=== PATIENT | female | born 1990 | race Caucasian/White ===

== ENCOUNTER 2017-01-17 13:14 | Outpatient (CLI) | payer MEDICAID ==
[~2017-01-17] VITALS: Ht 160 cm; Wt 77.2 kg
[~2017-01-17 13:14] MED LIST: IBUP-1222 PO; OXYC-302 PO
[2017-01-17 14:02] VITALS: BP 115/60
[2017-01-17 14:10] LABS: AMNI OBC PASS; AMNISURE NEGATIVE (NEGATIVE)
== END 2017-01-17 14:35 | disposition home or self-care (01) ==
LOC: LDOP 13:14
PROVIDERS: ATTEND Obstetrics & Gynecology
DX: O42.912 Preterm premature rupture of membranes, unspecified as to length of time between rupture and onset of labor, second trimester (principal); O44.42 Low lying placenta NOS or without hemorrhage, second trimester; Z3A.23 23 weeks gestation of pregnancy
CPT/HCPCS: 59025; 84112; 87210; 87808; 99201; G0463

== ENCOUNTER 2017-03-02 16:04 | Outpatient (CLI) | payer MEDICAID ==
[2017-03-02 16:31] VITALS: BP 121/68
== END 2017-03-02 17:31 | disposition home or self-care (01) ==
LOC: LDOP 16:04
PROVIDERS: ATTEND Obstetrics & Gynecology
DX: O44.53 Low lying placenta with hemorrhage, third trimester (principal); Z3A.31 31 weeks gestation of pregnancy
CPT/HCPCS: 59025; 99211; G0463

== ENCOUNTER 2017-03-27 21:57 | Outpatient (CLI) | payer MEDICAID ==
[~2017-03-27] VITALS: Ht 160 cm; Wt 82.3 kg
[2017-03-27 22:10] VITALS: BP 127/73
[2017-03-28] MEDS ORDERED: MAALOX/HYOSCYAMINE/LIDOCAINE 45 ML BOTTLE PO PRN (00:30)
[2017-03-28] MEDS ORDERED: ONDANSETRON ODT 4 MG PO PRN (00:30)
== END 2017-03-28 01:55 | disposition home or self-care (01) ==
LOC: LDOP 21:57
PROVIDERS: ATTEND Obstetrics & Gynecology
DX: O26.893 Other specified pregnancy related conditions, third trimester (principal); O44.43 Low lying placenta NOS or without hemorrhage, third trimester; M54.5 Low back pain; R10.9 Unspecified abdominal pain; R11.0 Nausea; Z3A.33 33 weeks gestation of pregnancy
CPT/HCPCS: 36415; 59025; 76770; 81001; 85025; 87086; 99211; G0463

== ENCOUNTER 2017-06-14 22:30 | Emergency (ER) | payer MEDICAID ==
[~2017-06-14] VITALS: Ht 160 cm; Wt 74.3 kg
[~2017-06-14 22:30] MED LIST changes: +HYDR-3240 PO; +PREN1TAB60 PO
[2017-06-14 23:12] LABS: HEMATOCRIT 38.6 % (34.6-47.8); HEMOGLOBIN 12.8 g/dL (11.7-16.4); WHITE BLOOD COUNT 9.5 x10^3/uL (3.4-10)
[2017-06-14 23:20] LABS: PATH.CAST-FLAG NOT PRESENT; SPERM-FLAG NOT PRESENT; SRC-FLAG NOT PRESENT; XTAL-FLAG NOT PRESENT; YLC-FLAG NOT PRESENT
[2017-06-14 23:24] LABS: BLOOD UREA NITROGEN 15 mg/dL (7-18)
[2017-06-15 00:41] VITALS: BP 115/70
== END 2017-06-15 00:44 | disposition home or self-care (01) ==
LOC: ED 23:33
DX: N12 Tubulo-interstitial nephritis, not specified as acute or chronic (principal); R31.9 Hematuria, unspecified
CPT/HCPCS: 36415; 76830; 80048; 81001; 82040; 85025; 87081; 87086; 87880; 99285

== ENCOUNTER → 2018-03-03 | Outpatient (CLI) | payer MEDICAID ==
[~2018-03-03] MED LIST changes: +GUAI-103 PO; +IBUP-1223 PO; +LUBI24CA7 PO; +ONDA4TAB10 PO; +SENN8.8S5 PO; +dayquil PO
[2018-03-03 16:20] LABS: BASOPHILS # (AUTO) 0.04 x10^3/uL (0-0.1); BASOPHILS % (AUTO) 0 % (0-1); EOSINOPHILS # (AUTO) 0.11 x10^3/uL (0-0.4); EOSINOPHILS % (AUTO) 1 % (1-7); LYMPHOCYTES # (AUTO) 2.57 x10^3/uL (1-3.4); LYMPHOCYTES % (AUTO) 29 % (22-44); MD NO; MEAN CORPUSCULAR HEMOGLOBIN 30.2 pg (27.0-34.8); MEAN CORPUSCULAR HGB CONC 33.8 g/dL (32.4-35.8); MEAN CORPUSCULAR VOLUME 89.4 fL (80-100); MEAN PLATELET VOLUME 9.2 fL (7.4-10.4); MONOCYTES # (AUTO) 0.61 x10^3/uL (0.2-0.8); MONOCYTES % (AUTO) 7 % (2-9); NEUTROPHILS # (AUTO) 5.47 x10^3/uL (1.8-6.8); NEUTROPHILS % (AUTO) 62 % (42-75); PLATELET COUNT 269 x10^3/uL (130-400); RED BLOOD COUNT 4.48 x10^6/uL (3.82-5.3); RED CELL DISTRIBUTION WIDTH 12.9 % (9.6-15.2)
[2018-03-03 16:23] LABS: MICROSCOPIC NOT IND
[2018-03-03 16:33] LABS: CULTURE INDICATED? NO
== END | disposition home or self-care (01) ==
LOC: STAR 15:09
PROVIDERS: ATTEND Obstetrics & Gynecology
DX: Z01.818 Encounter for other preprocedural examination (principal); N94.6 Dysmenorrhea, unspecified; N80.9 Endometriosis, unspecified
CPT/HCPCS: 36415; 81003; 84703; 85025

== ENCOUNTER 2018-03-08 05:12 | Day surgery (SDC) | payer MEDICAID ==
[~2018-03-08] VITALS: Ht 160 cm; Wt 75.0 kg
[~2018-03-08 05:12] MED LIST changes: -GUAI-103 PO; -IBUP-1223 PO; -ONDA4TAB10 PO; -SENN8.8S5 PO
[2018-03-08] MEDS ORDERED: LACTATED RINGERS 1,000 ML IV SCH (06:08)
[2018-03-08] MEDS ORDERED: GUAI-103 PO (06:09)
[2018-03-08] MEDS ORDERED: BUPIVACAINE/PF-EPI 0.25% 1:200K ONE (06:22)
[2018-03-08] MEDS ORDERED: SILVER NITRATE STICK TP ONE (06:23)
[2018-03-08 06:31] LABS: HCG UR SG 1.024 (1.003-1.030)
[2018-03-08] MEDS ORDERED: MIDAZOLAM 1 MG/ML, 2ML ONE (06:41)
[2018-03-08] MEDS ORDERED: FENTANYL PF 250 MCG/5ML ONE (06:42)
[2018-03-08] MEDS ORDERED: ONDANSETRON ODT 8 MG PO PRN (07:30)
[2018-03-08] MEDS ORDERED: MIDAZOLAM 1 MG/ML, 2ML IV PRN (07:30)
[2018-03-08] MEDS ORDERED: PROMETHAZINE 12.5 MG SUPP PR PRN (07:30)
[2018-03-08] MEDS ORDERED: PROMETHAZINE 25 MG/ML, 1ML IV PRN (07:30)
[2018-03-08] MEDS ORDERED: EPHEDRINE 50 MG/ML, 1ML IM PRN (07:30)
[2018-03-08] MEDS ORDERED: EPHEDRINE 50 MG/ML, 1ML IVPush PRN (07:30)
[2018-03-08] MEDS ORDERED: DIPHENHYDRAMINE 50 MG/ML, 1ML IVPush PRN ×2 (07:30)
[2018-03-08] MEDS ORDERED: MEPERIDINE/PF 25MG/0.5ML IVPush PRN (07:30)
[2018-03-08] MEDS ORDERED: MORPHINE SULFATE 4 MG/ML, 1ML IVPush PRN (07:30)
[2018-03-08] MEDS ORDERED: SUCCINYLCHOLINE 20 MG/ML, 10ML ONE (08:08)
[2018-03-08] MEDS ORDERED: PROPOFOL 10 MG/ML, 20ML ONE ×2 (08:08)
[2018-03-08] MEDS ORDERED: CEFAZOLIN 1,000 MG ONE (08:08)
[2018-03-08] MEDS ORDERED: DEXAMETHASONE 4 MG/ML, 1ML ONE (08:09)
[2018-03-08] MEDS ORDERED: ONDANSETRON 2MG/ML, 2ML ONE (08:09)
[2018-03-08] MEDS ORDERED: FENTANYL PF 100 MCG/2ML ONE (09:21)
[2018-03-08] MEDS ORDERED: PROMETHAZINE 25 MG/ML, 1ML ONE (09:21)
[2018-03-08] MEDS ORDERED: MEPERIDINE/PF 50 MG/ML ONE (09:21)
[2018-03-08] MEDS: FENTANYL PF 100 MCG/2ML IV PRN ×2 (09:36→09:49)
[2018-03-08] MEDS ORDERED: OXYcodone 5 MG/5 ML ORAL.SOL UDC ONE (09:39)
[2018-03-08] MEDS: OXYcodone 5 MG/5 ML ORAL.SOL UDC PO PRN ×2 (09:48→11:31)
[2018-03-08] MEDS ORDERED: OXYC-302 PO (10:48)
[2018-03-08] MEDS ORDERED: IBUP-1223 PO (10:52)
[2018-03-08] MEDS ORDERED: ONDA4TAB10 PO (10:53)
[2018-03-08] MEDS ORDERED: SENN8.8S5 PO (10:53)
== END 2018-03-08 11:40 | disposition home or self-care (01) ==
LOC: OUT 05:12
PROVIDERS: ATTEND Obstetrics & Gynecology
DX: N83.8 Other noninflammatory disorders of ovary, fallopian tube and broad ligament (principal); N88.9 Noninflammatory disorder of cervix uteri, unspecified; N83.201 Unspecified ovarian cyst, right side; N80.1 Endometriosis of ovary; N94.6 Dysmenorrhea, unspecified; N93.9 Abnormal uterine and vaginal bleeding, unspecified; R30.0 Dysuria; Z79.1 Long term (current) use of non-steroidal anti-inflammatories (NSAID); Z79.899 Other long term (current) drug therapy; Z82.49 Family history of ischemic heart disease and other diseases of the circulatory system
CPT/HCPCS: 58558; 58662; 81025; 88112; 88304; 88305; J0330; J0690; J1100; J2175; J2250; J2405; J2550; J2704; J3010; J7120

== ENCOUNTER 2018-03-22 22:25 | Emergency (ER) | payer MEDICAID ==
[~2018-03-22] VITALS: Ht 160 cm; Wt 77.0 kg
[~2018-03-22 22:25] MED LIST changes: +GUAI-103 PO; +IBUP-1223 PO; +ONDA4TAB10 PO; +SENN8.8S5 PO
[2018-03-22 22:29] VITALS: BP 116/79
== END 2018-03-23 00:19 | disposition left against medical advice (07) ==
LOC: ED 23:59
DX: R11.0 Nausea (principal); Z53.21 Procedure and treatment not carried out due to patient leaving prior to being seen by health care provider

== ENCOUNTER 2018-03-23 18:45 | Emergency (ER) | payer MEDICAID ==
[~2018-03-23] VITALS: Ht 160 cm; Wt 76.0 kg
[2018-03-23 18:49] VITALS: BP 133/92
[2018-03-23 19:55] LABS: BASOPHILS # (AUTO) 0.04 x10^3/uL (0-0.1); BASOPHILS % (AUTO) 1 % (0-1); EOSINOPHILS # (AUTO) 0.26 x10^3/uL (0-0.4); EOSINOPHILS % (AUTO) 3 % (1-7); LYMPHOCYTES # (AUTO) 2.73 x10^3/uL (1-3.4); LYMPHOCYTES % (AUTO) 32 % (22-44); MD NO; MEAN CORPUSCULAR HEMOGLOBIN 29.9 pg (27.0-34.8); MEAN CORPUSCULAR HGB CONC 33.6 g/dL (32.4-35.8); MEAN PLATELET VOLUME 8.6 fL (7.4-10.4); MONOCYTES # (AUTO) 0.55 x10^3/uL (0.2-0.8); MONOCYTES % (AUTO) 7 % (2-9); NEUTROPHILS # (AUTO) 4.87 x10^3/uL (1.8-6.8); NEUTROPHILS % (AUTO) 58 % (42-75); PLATELET COUNT 265 x10^3/uL (130-400); RED BLOOD COUNT 4.53 x10^6/uL (3.82-5.3); RED CELL DISTRIBUTION WIDTH 12.6 % (9.6-15.2)
[2018-03-23 19:58] LABS: ANION GAP 7 mmol/L (5-15); CALCIUM 8.8 mg/dL (8.5-10.1); CHLORIDE 106 mmol/L (98-107)
[2018-03-23] MEDS ORDERED: SODIUM CHLORIDE FLUSH 10ML SYR IVF ONE (20:00)
[2018-03-23] MEDS ORDERED: SODIUM CHLORIDE 0.9% 1,000ML IVBOLUS ONE (20:00)
[2018-03-23] MEDS ORDERED: METOCLOPRAMIDE 5 MG/ML, 2ML IVPush ONE (20:00)
[2018-03-23] MEDS ORDERED: KETOROLAC 30 MG/1 ML IVPush ONE (20:00)
[2018-03-23] MEDS ORDERED: DIPHENHYDRAMINE 50 MG/ML, 1ML IVPush ONE (20:00)
[2018-03-23 20:04] LABS: ALANINE AMINOTRANSFERASE 30 U/L (12-78); ALKALINE PHOSPHATASE 76 U/L (45-117); BILIRUBIN,TOTAL 0.5 mg/dL (0.2-1.0)
[2018-03-23 20:08] LABS: MICROSCOPIC AUTO
[2018-03-23 20:13] LABS: CULTURE INDICATED? YES
[2018-03-23] MEDS ORDERED: ACETAMINOPHEN 325 MG TABLET PO ONE (20:30)
[2018-03-23] MEDS ORDERED: KETOROLAC 30 MG/1 ML IM ONE (20:30)
[2018-03-23] MEDS ORDERED: METOCLOPRAMIDE 10MG TABLET PO ONE (20:30)
[2018-03-23] MEDS ORDERED: DIPHENHYDRAMINE 50 MG CAPSULE PO ONE (20:30)
[2018-03-23] MEDS ORDERED: DIPHENHYDRAMINE 50 MG CAPSULE ONE (20:59)
[2018-03-23] MEDS ORDERED: KETOROLAC 30 MG/1 ML ONE (20:59)
[2018-03-23] MEDS ORDERED: ACETAMINOPHEN 325 MG TABLET ONE (21:00)
[2018-03-23] MEDS ORDERED: METOCLOPRAMIDE 10MG TABLET ONE (21:00)
== END 2018-03-23 21:26 | disposition home or self-care (01) ==
LOC: ED 21:20
DX: L03.316 Cellulitis of umbilicus (principal); G43.909 Migraine, unspecified, not intractable, without status migrainosus
CPT/HCPCS: 36415; 80053; 81001; 84703; 85025; 87086; 93005; 96372; 99285; J1885

== ENCOUNTER 2018-04-22 20:09 | Emergency (ER) | payer MEDICAID ==
[~2018-04-22] VITALS: Ht 160 cm; Wt 74.0 kg
[2018-04-22] MEDS ORDERED: KETOROLAC 30 MG/1 ML ONE (20:58)
[2018-04-22] MEDS ORDERED: KETOROLAC 30 MG/1 ML IM ONE (21:00)
[2018-04-22] MEDS ORDERED: METHOCARBAMOL 750 MG TABLET PO ONE (21:00)
[2018-04-22] MEDS ORDERED: METHOCARBAMOL 500 MG TABLET PO ONE (21:30)
[2018-04-22 22:11] VITALS: BP 96/62
== END 2018-04-22 22:14 | disposition home or self-care (01) ==
LOC: ED 21:55
DX: G44.221 Chronic tension-type headache, intractable (principal)
CPT/HCPCS: 96372; 99283; J1885

== ENCOUNTER 2019-04-08 16:25 | Emergency (ER) | payer MEDICAID ==
[~2019-04-08] VITALS: Ht 160 cm; Wt 67.0 kg
[~2019-04-08 16:25] MED LIST changes: +TOPI100T8 PO
--- NOTE | 2019-04-08 17:12 | NUR ---
PT AMBULATORY TO ROOM 38 W/ C/O CRAMPING TO PELVIC REGION. PT STATES SHE WAS SEEN HERE WED AND HAD US DONE. STATES THURSDAY SHE TOOK TEST AND IT WAS IMMEDIATELY POSITIVE. PT STATES THAT SINCE SHE HAD US WED W/ NO SEEN PT IS AFRAID OF ECTOPIC. PT RESTING ON GURNEY. NADN. WARM BLANKET PROVIDED.
--- NOTE | 2019-04-08 17:24 | NUR ---
PER ERP DR. DELVALLE NO NEED FOR LAB AT THIS TIME.
[2019-04-08 17:40] LABS: CULTURE INDICATED? YES; MICROSCOPIC INDICATED
--- NOTE | 2019-04-08 18:00 | NUR ---
PT RESTING ON FRANKLIN. TOMMY. VSS. FAMILY REMAINS AT BEDSIDE.
[2019-04-08 18:40] VITALS: BP 113/69
--- NOTE | 2019-04-08 18:40 | NUR ---
PT RESTING ON GURNEY. NADN. CORADO.
--- NOTE | 2019-04-08 18:57 | NUR ---
REPORT GIVEN TO NICOLLE MONTGOMERY RN.
[2019-05-23] MEDS ORDERED: OXYC-307 PO (16:40)
== END 2019-04-08 19:14 | disposition home or self-care (01) ==
LOC: ED 17:05
DX: O23.11 Infections of bladder in pregnancy, first trimester (principal); G43.909 Migraine, unspecified, not intractable, without status migrainosus; Z3A.00 Weeks of gestation of pregnancy not specified
CPT/HCPCS: 36415; 76801; 81001; 84702; 87077; 87086; 87186; 99284

== ENCOUNTER 2019-04-10 16:41 | Emergency (ER) | payer MEDICAID ==
[~2019-04-10] VITALS: Ht 160 cm; Wt 67.0 kg
--- NOTE | 2019-04-10 16:55 | NUR ---
PT A&OX4, RESP EVEN & UNLABORED, SPEECH CLEAR, SKIN WNL. SPOUSE IN ROOM. POSTIVE HOME PG TEST ON . WAS SEEN AT [facility] ON THURSDAY. WAS TOLD TO RETURN FOR REPEAT HCG LEVEL. PAIN ACROSS LOWER ABD, WORSE RLQ; STARTED 1 WK AGO. TYLENOL YESTERDAY. 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 LMP: 03/08/19. AB3. Addendum: 04/10/19 at 1659 by JODI RECENTLY DX'D W/ UTI; HASN'T STARTED ANTIBIOTIC YET.
[2019-04-10] MEDS ORDERED: SUMA20SP2 NAS (17:05)
[2019-04-10] MEDS ORDERED: IMITREX (17:05)
--- NOTE | 2019-04-10 18:02 | NUR ---
PT REPORT TO BREAK RN: BHAVNA. PT CARE TRANSFERRED. PT AWAITING U/S.
--- NOTE | 2019-04-10 19:09 | NUR ---
PT LYING ON BED, REPORTS INCREASED PAIN R/T U/S, IMPROVING NOW.
[2019-04-10 20:15] VITALS: BP 106/70
[2019-05-23] MEDS ORDERED: OXYC-307 PO (16:40)
== END 2019-04-10 20:17 | disposition home or self-care (01) ==
LOC: ED 17:12
DX: O26.891 Other specified pregnancy related conditions, first trimester (principal); R10.31 Right lower quadrant pain; G43.909 Migraine, unspecified, not intractable, without status migrainosus; Z3A.01 Less than 8 weeks gestation of pregnancy
CPT/HCPCS: 36415; 76856; 84702; 99284

== ENCOUNTER 2019-04-22 15:14 | Emergency (ER) | payer MEDICAID ==
[~2019-04-22] VITALS: Ht 160 cm; Wt 67.7 kg
[2019-04-22 15:31] VITALS: BP 115/75
== END 2019-04-22 19:12 | disposition home or self-care (01) ==
LOC: ED 19:02
DX: O99.611 Diseases of the digestive system complicating pregnancy, first trimester (principal); K29.00 Acute gastritis without bleeding; R82.71 Bacteriuria; R42 Dizziness and giddiness; R11.0 Nausea; Z3A.01 Less than 8 weeks gestation of pregnancy
CPT/HCPCS: 36415; 76830; 80053; 81001; 84702; 85025; 87077; 87086; 87186; 99284

== ENCOUNTER → 2019-11-20 | Outpatient (CLI) | payer MEDICAID ==
[~2019-11-20] MED LIST changes: +IMITREX; +OXYC-307 PO; +SUMA20SP2 NAS
== END | disposition home or self-care (01) ==
LOC: RAD 11:35
PROVIDERS: ATTEND Nurse Practitioner
DX: R68.84 Jaw pain (principal); J20.9 Acute bronchitis, unspecified
CPT/HCPCS: 70100

== ENCOUNTER 2020-05-07 13:01 | Inpatient (IN) | payer MEDICAID ==
[~2020-05-07] VITALS: Ht 160 cm; Wt 72.0 kg
[2020-05-07 13:55] LABS: MEAN CORPUSCULAR HEMOGLOBIN 31.4 pg (27.0-34.8); MEAN CORPUSCULAR HGB CONC 33.5 g/dL (32.4-35.8); MEAN CORPUSCULAR VOLUME 93.8 fL (80-100); MEAN PLATELET VOLUME 8.6 fL (7.4-10.4); PLATELET COUNT 178 x10^3/uL (130-400); RED BLOOD COUNT 3.82 x10^6/uL (3.82-5.3); RED CELL DISTRIBUTION WIDTH 12.4 % (9.6-15.2)
[2020-05-07 14:02] LABS: ALBUMIN 3.6 g/dL (3.4-5.0); ANION GAP 6 mmol/L (5-15); CHLORIDE 107 mmol/L (98-107)
[2020-05-07 14:08] LABS: ALANINE AMINOTRANSFERASE 22 U/L (12-78); ALKALINE PHOSPHATASE 79 U/L (45-117); BILIRUBIN,TOTAL 0.7 mg/dL (0.2-1.0); CREATININE 0.87 mg/dL (0.55-1.02); TOTAL PROTEIN 7.6 g/dL (6.4-8.2)
[2020-05-07 14:19] LABS: BAND#(MANUAL) 1.32 x10^3/uL; BANDS%(MANUAL) 11 % (0-7); EOS#(MANUAL) 0.12 x10^3/uL (0.0-0.4); EOS% (MANUAL) 1 % (1-7); LYMPHS% (MANUAL) 5 % (22-44); MD YES; MONOS#(MANUAL) 0.84 x10^3/uL (0.3-2.7); MONOS% (MANUAL) 7 % (2-9); SEG#(MANUAL) 9.12 x10^3/uL (1.8-6.8); SEGS% (MANUAL) 76 % (42-75)
[2020-05-07 14:20] LABS: <PLATELET ESTIMATE> ADEQUATE; <PLT MORPHOLOGY> NORMAL PLT MORPH; <RBC MORPHOLOGY> NORMAL
--- NOTE | 2020-05-07 14:42 | NUR ---
INVASIVE CARDIOLOGIST: PT AMBULATORY WITH STEADY GAIT TO ROOM AT THIS TIME. TOMMY
--- NOTE | 2020-05-07 15:56 | NUR ---
PT GOING TO CT AT THIS TIME. BLOOD CULTURES HAVE BEEN DRAWN. IV STARTED.
[2020-05-07] MEDS ORDERED: SODIUM CHLORIDE 0.9% 1,000ML IVBOLUS ONE (16:00)
[2020-05-07] MEDS ORDERED: SODIUM CHLORIDE FLUSH 10ML SYR IVF ONE (16:00)
[2020-05-07 16:10] LABS: MICROSCOPIC INDICATED
[2020-05-07 16:20] LABS: CALCIUM 9.1 mg/dL (8.5-10.1)
[2020-05-07] MEDS ORDERED: CEFTRIAXONE PMX 1GM/50ML 50 ML IV ONE (17:00)
[2020-05-07] MEDS ORDERED: KETOROLAC 30 MG/1 ML ONE (17:18)
[2020-05-07] MEDS ORDERED: METOCLOPRAMIDE 5 MG/ML, 2ML ONE (17:18)
[2020-05-07] MEDS ORDERED: CEFTRIAXONE PMX 1GM/50ML 50 ML ONE (17:18)
[2020-05-07] MEDS ORDERED: ELAG200T PO (17:26)
[2020-05-07] MEDS ORDERED: NORE0.3513 PO (17:26)
[2020-05-07] MEDS ORDERED: IBUP-1223 PO (17:26)
[2020-05-07] MEDS ORDERED: METOCLOPRAMIDE 5 MG/ML, 2ML IVPush ONE (17:30)
[2020-05-07] MEDS ORDERED: KETOROLAC 30 MG/1 ML IVPush ONE (17:30)
--- NOTE | 2020-05-07 17:35 | NUR ---
PT LMEDICATED PER EMAR. MED REC DONE. PT AWARE SHE IS GOING TO BE ADMITTED. PT GOING TO CT AT THIS TIME. PT VSS, SEE CHARTED.
[2020-05-07] MEDS ORDERED: OMNIPAQUE 350 MG/ML, 100ML BOTTLE ONE (17:50)
[2020-05-07] MEDS: SODIUM CHLORIDE 0.9% 1,000 ML IV SCH (18:50)
--- NOTE | 2020-05-07 18:55 | NUR ---
PT UP FOR BATHROOM STEADILY. NO STATED COMPLAINTS AT THIS TIME. REPORT TO ELVER LORENZO.
[2020-05-07 19:55] VITALS: BP 114/77
[2020-05-07] MEDS: HEPARIN 5,000 UNITS/ML, 1ML SQ SCH ×2 (20:00→20:44)
[2020-05-07] MEDS: HYDROcodone/APAP 5/325 TABLET PO PRN (20:39)
[2020-05-07] MEDS: KETOROLAC 30 MG/1 ML IV PRN (23:47)
[2020-05-08] MEDS: HYDROcodone/APAP 5/325 TABLET PO PRN ×5 (00:45→19:09)
[2020-05-08 00:52] VITALS: BP 100/64
[2020-05-08] MEDS: SODIUM CHLORIDE 0.9% 1,000 ML IV SCH ×4 (02:21→22:02)
[2020-05-08] MEDS: HEPARIN 5,000 UNITS/ML, 1ML SQ SCH ×3 (04:00→20:00)
[2020-05-08 06:35] VITALS: BP 95/61
[2020-05-08 06:40] LABS: BASOPHILS # (AUTO) 0.01 x10^3/uL (0-0.1); BASOPHILS % (AUTO) 0 % (0-1); EOSINOPHILS # (AUTO) 0.07 x10^3/uL (0-0.4); EOSINOPHILS % (AUTO) 1 % (1-7); LYMPHOCYTES # (AUTO) 0.73 x10^3/uL (1-3.4); LYMPHOCYTES % (AUTO) 10 % (22-44); MD NO; MEAN CORPUSCULAR HEMOGLOBIN 31.8 pg (27.0-34.8); MEAN CORPUSCULAR VOLUME 93.5 fL (80-100); MEAN PLATELET VOLUME 8.1 fL (7.4-10.4); MONOCYTES # (AUTO) 0.83 x10^3/uL (0.2-0.8); MONOCYTES % (AUTO) 11 % (2-9); NEUTROPHILS # (AUTO) 6.06 x10^3/uL (1.8-6.8); NEUTROPHILS % (AUTO) 79 % (42-75); PLATELET COUNT 143 x10^3/uL (130-400); RED BLOOD COUNT 3.13 x10^6/uL (3.82-5.3); RED CELL DISTRIBUTION WIDTH 12.4 % (9.6-15.2)
[2020-05-08 06:45] LABS: CHLORIDE 109 mmol/L (98-107)
[2020-05-08 07:07] LABS: ALANINE AMINOTRANSFERASE 14 U/L (12-78); ALBUMIN 2.7 g/dL (3.4-5.0); ALKALINE PHOSPHATASE 66 U/L (45-117); ANION GAP 8 mmol/L (5-15); BILIRUBIN,TOTAL 0.7 mg/dL (0.2-1.0); TOTAL PROTEIN 6.2 g/dL (6.4-8.2)
[2020-05-08] MEDS: ONDANSETRON 2MG/ML, 2ML IVPush PRN ×2 (07:52→18:25)
[2020-05-08] MEDS: KETOROLAC 30 MG/1 ML IV PRN ×3 (07:52→22:36)
[2020-05-08] MEDS ORDERED: DIPHENHYDRAMINE 50 MG/ML, 1ML IVPush ONE (10:30)
[2020-05-08] MEDS ORDERED: morphine SULFATE 10 MG/ML, 1ML IVPush PRN (10:30)
[2020-05-08] MEDS ORDERED: MAGNESIUM HYDROXIDE 8%, 30ML UDC ONE (10:45)
[2020-05-08] MEDS ORDERED: BISACODYL 10 MG SUPP PR PRN (11:00)
[2020-05-08] MEDS ORDERED: MAGNESIUM HYDROXIDE 8%, 30ML UDC PO PRN (11:00)
[2020-05-08 14:00] VITALS: BP 94/66
[2020-05-08] MEDS: POLYETHYLENE GLYCOL 17 GM PACKET NG PRN (14:40)
[2020-05-08] MEDS: CEFTRIAXONE PMX 1GM/50ML 50 ML IV SCH (16:45)
[2020-05-08 19:06] VITALS: BP 113/74
[2020-05-08] MEDS ORDERED: DIPHENHYDRAMINE 50 MG CAPSULE PO PRN (23:00)
[2020-05-09] MEDS: HYDROcodone/APAP 5/325 TABLET PO PRN ×4 (00:11→19:29)
[2020-05-09 02:07] VITALS: BP 105/70
[2020-05-09] MEDS: HEPARIN 5,000 UNITS/ML, 1ML SQ SCH ×3 (04:00→19:38)
[2020-05-09] MEDS: SODIUM CHLORIDE 0.9% 1,000 ML IV SCH ×2 (04:12→10:20)
[2020-05-09 05:54] LABS: BASOPHILS # (AUTO) 0.01 x10^3/uL (0-0.1); BASOPHILS % (AUTO) 0 % (0-1); EOSINOPHILS % (AUTO) 1 % (1-7); LYMPHOCYTES # (AUTO) 1.03 x10^3/uL (1-3.4); LYMPHOCYTES % (AUTO) 15 % (22-44); MD NO; MEAN CORPUSCULAR HEMOGLOBIN 31.2 pg (27.0-34.8); MEAN CORPUSCULAR HGB CONC 32.8 g/dL (32.4-35.8); MEAN CORPUSCULAR VOLUME 95.2 fL (80-100); MEAN PLATELET VOLUME 7.9 fL (7.4-10.4); MONOCYTES % (AUTO) 13 % (2-9); NEUTROPHILS # (AUTO) 4.89 x10^3/uL (1.8-6.8); NEUTROPHILS % (AUTO) 71 % (42-75); PLATELET COUNT 161 x10^3/uL (130-400); RED CELL DISTRIBUTION WIDTH 12.5 % (9.6-15.2)
[2020-05-09] MEDS: ONDANSETRON 2MG/ML, 2ML IVPush PRN ×2 (05:57→14:43)
[2020-05-09 05:59] LABS: ANION GAP 5 mmol/L (5-15); CHLORIDE 111 mmol/L (98-107)
[2020-05-09 07:53] VITALS: BP 110/73
[2020-05-09] MEDS: KETOROLAC 30 MG/1 ML IV PRN ×3 (08:28→21:31)
[2020-05-09] MEDS: ACETAMINOPHEN 325 MG TABLET PO PRN (08:28)
[2020-05-09 13:59] VITALS: BP 109/75
[2020-05-09] MEDS: CEFTRIAXONE PMX 1GM/50ML 50 ML IV SCH (17:00)
[2020-05-09 19:25] VITALS: BP 110/71
[2020-05-09] MEDS: POLYETHYLENE GLYCOL 17 GM PACKET NG PRN (19:36)
[2020-05-10 01:36] VITALS: BP 108/70
[2020-05-10] MEDS: HYDROcodone/APAP 5/325 TABLET PO PRN ×5 (01:39→23:22)
[2020-05-10] MEDS: HEPARIN 5,000 UNITS/ML, 1ML SQ SCH ×3 (02:50→19:21)
[2020-05-10] MEDS: KETOROLAC 30 MG/1 ML IV PRN ×4 (05:03→23:22)
[2020-05-10 07:36] VITALS: BP 114/64
[2020-05-10] MEDS ORDERED: CEFTRIAXONE PMX 2GM/50ML 50 ML IV SCH (12:30)
[2020-05-10 13:53] VITALS: BP 112/66
[2020-05-10] MEDS: ONDANSETRON 2MG/ML, 2ML IVPush PRN (14:35)
[2020-05-10 19:03] VITALS: BP 109/72
[2020-05-11 02:21] VITALS: BP 100/62
[2020-05-11] MEDS: HEPARIN 5,000 UNITS/ML, 1ML SQ SCH (03:17)
[2020-05-11 07:18] VITALS: BP 106/72
[2020-05-11] MEDS: KETOROLAC 30 MG/1 ML IV PRN (07:44)
[2020-05-11] MEDS: ACETAMINOPHEN 325 MG TABLET PO PRN (07:44)
[2020-05-11] MEDS: HYDROcodone/APAP 5/325 TABLET PO PRN (08:42)
[2020-05-11] MEDS ORDERED: SULF1TAB24 PO (09:43)
[2020-05-11] MEDS ORDERED: HYDR-3237 PO (09:43)
== END 2020-05-11 11:26 | disposition home or self-care (01) | DRG 872 ==
LOC: ED 17:48 → EDIP 17:55 → ED 18:15 → 4NE 19:39 → 4NW 05-10 09:46
PROVIDERS: ADMIT Internal Medicine; ATTEND Family Medicine
DX: A41.9 Sepsis, unspecified organism (principal); N10 Acute pyelonephritis; Z16.11 Resistance to penicillins; B96.20 Unspecified Escherichia coli [E. coli] as the cause of diseases classified elsewhere; G43.009 Migraine without aura, not intractable, without status migrainosus; F12.90 Cannabis use, unspecified, uncomplicated; N89.8 Other specified noninflammatory disorders of vagina; Z82.49 Family history of ischemic heart disease and other diseases of the circulatory system
CPT/HCPCS: 36415; 74021; 74177; 80048; 80053; 81001; 83605; 83735; 84100; 84145; 84443; 84703; 85025; 87040; 87077; 87086; 87186; 87491; 87591; 96374; 99291; G0378; J0696; J1644; J1885; J2405; Q9967; J1200; J2765; J7030

== ENCOUNTER 2020-07-29 00:11 | Emergency (ER) | payer MEDICAID ==
[~2020-07-29] VITALS: Ht 160 cm; Wt 64.6 kg
[~2020-07-29 00:11] MED LIST changes: +ELAG200T PO; +HYDR-3237 PO; +NORE0.3513 PO; +SULF1TAB24 PO
--- NOTE | 2020-07-29 00:20 | NUR ---
PT RESTING IN GOWN IN [facility] WITH PARTNER AT BS. PT EDUCATED ON ER PROCESS AND POC AND VERBALIZES UNDERSTANDING. YESENIA HOLLIS, AT BS FOR PT HISTORY AND ASSESSMENT. PT URINE COLLECTED AND TUBED TO LAB AT THIS TIME. PT DENIES ANY OTHER NEEDS AT THIS TIME.
[2020-07-29] MEDS ORDERED: FLUCONAZOLE 100 MG TABLET ONE (00:42)
--- NOTE | 2020-07-29 00:47 | NUR ---
PT MEDICATED PER MAR AT THIS TIME.
[2020-07-29 00:50] LABS: MICROSCOPIC AUTO
[2020-07-29 01:00] LABS: BASOPHILS % (AUTO) 0 % (0-1); EOSINOPHILS % (AUTO) 1 % (1-7); LYMPHOCYTES % (AUTO) 11 % (22-44); MEAN CORPUSCULAR HGB CONC 34.5 g/dL (32.4-35.8); MEAN PLATELET VOLUME 7.9 fL (7.4-10.4); MONOCYTES % (AUTO) 8 % (2-9); NEUTROPHILS % (AUTO) 80 % (42-75); PLATELET COUNT 192 x10^3/uL (130-400); RED BLOOD COUNT 3.95 x10^6/uL (3.82-5.3); RED CELL DISTRIBUTION WIDTH 12.2 % (9.6-15.2)
[2020-07-29] MEDS ORDERED: FLUCONAZOLE 100 MG TABLET PO ONE (01:00)
[2020-07-29 01:02] LABS: MD NO
[2020-07-29 01:09] LABS: ALANINE AMINOTRANSFERASE 14 U/L (12-78); ALBUMIN 3.9 g/dL (3.4-5.0); ANION GAP 4 mmol/L (5-15); CALCIUM 8.4 mg/dL (8.5-10.1); CHLORIDE 110 mmol/L (98-107)
[2020-07-29 01:13] LABS: ALKALINE PHOSPHATASE 50 U/L (45-117); BILIRUBIN,TOTAL 0.2 mg/dL (0.2-1.0); TOTAL PROTEIN 7.2 g/dL (6.4-8.2)
[2020-07-29] MEDS ORDERED: CEFDINIR 300 MG CAPSULE ONE (01:49)
--- NOTE | 2020-07-29 01:57 | NUR ---
pt medicated per nov. pt d/c with d/c summary and scripts and denies any other needs pertaining to this visit. pt has call light within reach and denies any other needs at this time.
[2020-07-29 01:58] VITALS: BP 114/66
[2020-07-29] MEDS ORDERED: CEFDINIR 300 MG CAPSULE PO ONE (02:00)
== END 2020-07-29 02:13 | disposition home or self-care (01) ==
LOC: ED 01:14
DX: N30.00 Acute cystitis without hematuria (principal); B37.3 Candidiasis of vulva and vagina; G43.909 Migraine, unspecified, not intractable, without status migrainosus
CPT/HCPCS: 36415; 80053; 81001; 84703; 85025; 87077; 87086; 87186; 99283

== ENCOUNTER 2020-10-21 15:02 | Emergency (ER) | payer MEDICAID ==
[~2020-10-21] VITALS: Ht 160 cm; Wt 65.2 kg
[~2020-10-21 15:02] MED LIST changes: +HYDR-1067 PO; -HYDR-3240 PO; -OXYC-302 PO; -OXYC-307 PO; +OXYC-380 PO; +OXYC1TAB14 PO
--- NOTE | 2020-10-21 15:22 | NUR ---
PROVIDER AT BEDSIDE FOR ASSESSMENT AND TO DISCUSS PLAN OF CARE
--- NOTE | 2020-10-21 15:27 | NUR ---
PT AMBULATED TO BATHROOM W/STEADY GAIT
--- NOTE | 2020-10-21 15:30 | NUR ---
PT COMES IN C/O RIGHT KNEE PAIN SINCE AUGUST. PT STATES IT RECENTLY GOT WORSE WHEN SHE SLIPPED ON SOME ICE AND "TOOK A TUMBLE" PT DENIES PAIN WHEN STANDING AND LIMPING W/WALKING BUT STATES INCREASED PAIN WHEN "STAGNENT". MONITORS CONNECTED. CALL LIGHT W/IN REACH
[2020-10-21] MEDS ORDERED: KETOROLAC 30 MG/1 ML IM ONE (16:00)
--- NOTE | 2020-10-21 16:01 | NUR ---
PROVIDER AT BEDSIDE TO DISCUSS RESULTS. TECH WRAPPED RIGHT KNEE PER ORDER.
[2020-10-21] MEDS ORDERED: KETOROLAC 30 MG/1 ML ONE (16:03)
[2020-10-21 16:07] VITALS: BP 113/53
--- NOTE | 2020-10-21 16:10 | NUR ---
ORDERED MEDICATION ADMINISTERED.
--- NOTE | 2020-10-21 16:21 | NUR ---
PT AMBULATED TO DISCHARGE W/STEADY GAIT. PT ENCOURAGED TO FOLLOWUP DISUCSSED. PT EDUCATED TO RETURN TO THE ED W/WORSENING SYMPTOMS. RX GIVEN
== END 2020-10-21 16:23 | disposition home or self-care (01) ==
LOC: ED 15:20
DX: G89.11 Acute pain due to trauma (principal); M25.561 Pain in right knee; W01.0XXA Fall on same level from slipping, tripping and stumbling without subsequent striking against object, initial encounter; Y93.89 Activity, other specified; Y92.89 Other specified places as the place of occurrence of the external cause; Y99.8 Other external cause status
CPT/HCPCS: 73564; 96372; 99283; J1885

== ENCOUNTER 2021-01-11 10:09 | Emergency (ER) | payer MEDICAID ==
[~2021-01-11] VITALS: Ht 160 cm; Wt 62.7 kg
[~2021-01-11 10:09] MED LIST changes: -HYDR-1067 PO; +HYDR-2214 PO; -NORE0.3513 PO; +NORE0.3519 PO; +SENN8.8S13 PO; -SENN8.8S5 PO; +SULF-23 PO; -SULF1TAB24 PO
--- NOTE | 2021-01-11 10:44 | NUR ---
PAGE MAKEUP SYSTEM OPERATOR: PT TO ROOM FROM LOBBY
[2021-01-11] MEDS ORDERED: OXYcodone/APAP 5/325MG TABLET PO ONE (11:30)
--- NOTE | 2021-01-11 11:46 | NUR ---
pt at procedure. as
[2021-01-11 11:50] LABS: BASOPHILS % (AUTO) 0 % (0-1); EOSINOPHILS % (AUTO) 1 % (1-7); LYMPHOCYTES % (AUTO) 25 % (22-44); MEAN CORPUSCULAR HEMOGLOBIN 31.5 pg (27.0-34.8); MEAN CORPUSCULAR HGB CONC 33.9 g/dL (32.4-35.8); MEAN PLATELET VOLUME 8.2 fL (7.4-10.4); MONOCYTES % (AUTO) 6 % (2-9); NEUTROPHILS % (AUTO) 68 % (42-75); PLATELET COUNT 221 x10^3/uL (130-400); RED BLOOD COUNT 4.09 x10^6/uL (3.82-5.3); RED CELL DISTRIBUTION WIDTH 12.4 % (9.6-15.2)
[2021-01-11 11:51] LABS: MD NO
[2021-01-11 12:02] LABS: ALBUMIN 4.2 g/dL (3.4-5.0); ANION GAP 4 mmol/L (5-15); CALCIUM 8.3 mg/dL (8.5-10.1); CHLORIDE 110 mmol/L (98-107); CREATININE 0.82 mg/dL (0.55-1.02)
--- NOTE | 2021-01-11 12:17 | NUR ---
PT BACK WITH CHIEF COMPLAINT OF VB X 30 DAYS.
[2021-01-11] MEDS ORDERED: OXYcodone/APAP 5/325MG TABLET ONE (12:52)
--- NOTE | 2021-01-11 12:55 | NUR ---
ua that was sent was clean catch not straight cath, communciated to talita palafox. as
[2021-01-11 12:57] LABS: MICROSCOPIC AUTO
--- NOTE | 2021-01-11 13:20 | NUR ---
pt up for recheck. as
[2021-01-11 13:37] VITALS: BP 114/78
== END 2021-01-11 13:39 | disposition home or self-care (01) ==
LOC: ED 10:51
DX: N93.8 Other specified abnormal uterine and vaginal bleeding (principal); R94.31 Abnormal electrocardiogram [ECG] [EKG]
CPT/HCPCS: 36415; 76830; 80048; 81001; 82040; 84703; 85025; 93005; 99285

== ENCOUNTER 2021-03-19 11:12 | Emergency (ER) | payer MEDICAID ==
[~2021-03-19] VITALS: Ht 160 cm; Wt 66.2 kg
--- NOTE | 2021-03-19 11:35 | NUR ---
PT AMBULATED STEADILY TO BR TO VOID, UA SAMPLE SENT TO LAB.
[2021-03-19 11:57] LABS: MICROSCOPIC INDICATED
[2021-03-19] MEDS ORDERED: PHENAZOPYRIDINE 200 MG TABLET ONE (12:20)
[2021-03-19] MEDS ORDERED: PHENAZOPYRIDINE 200 MG TABLET PO ONE (12:30)
--- NOTE | 2021-03-19 12:32 | NUR ---
LAB AT BS.
[2021-03-19 12:44] LABS: BASOPHILS % (AUTO) 0 % (0-1); EOSINOPHILS % (AUTO) 2 % (1-7); LYMPHOCYTES % (AUTO) 26 % (22-44); MEAN CORPUSCULAR HEMOGLOBIN 32.5 pg (27.0-34.8); MEAN CORPUSCULAR HGB CONC 34.4 g/dL (32.4-35.8); MEAN PLATELET VOLUME 7.9 fL (7.4-10.4); MONOCYTES % (AUTO) 7 % (2-9); NEUTROPHILS % (AUTO) 65 % (42-75); PLATELET COUNT 211 x10^3/uL (130-400); RED BLOOD COUNT 3.58 x10^6/uL (3.82-5.3); RED CELL DISTRIBUTION WIDTH 12.3 % (9.6-15.2)
[2021-03-19 12:55] LABS: ALANINE AMINOTRANSFERASE 16 U/L (12-78); ALBUMIN 3.5 g/dL (3.4-5.0); ANION GAP 4 mmol/L (5-15); CALCIUM 7.9 mg/dL (8.5-10.1); CHLORIDE 112 mmol/L (98-107); CREATININE 0.82 mg/dL (0.55-1.02)
[2021-03-19 12:59] LABS: ALKALINE PHOSPHATASE 46 U/L (45-117); BILIRUBIN,TOTAL 0.1 mg/dL (0.2-1.0); TOTAL PROTEIN 6.7 g/dL (6.4-8.2)
[2021-03-19] MEDS ORDERED: HYDROcodone/APAP 5/325 TABLET PO ONE (13:30)
[2021-03-19] MEDS ORDERED: NITROFURANTOIN (MACROBID) 100 MG CAPSULE PO ONE (13:30)
[2021-03-19] MEDS ORDERED: HYDROcodone/APAP 5/325 TABLET ONE (13:58)
[2021-03-19 14:03] VITALS: BP 116/78
--- NOTE | 2021-03-19 15:08 | NUR ---
Patient given discharge instructions and Rx, they have confirmed that they understand the instructions. Patient ambulatory with steady gait. NAD, all questions answered appropriately, denies additional needs at this time. No personal belongings left in room after discharge.
== END 2021-03-19 15:09 | disposition home or self-care (01) ==
LOC: ED 12:06
DX: N30.00 Acute cystitis without hematuria (principal)
CPT/HCPCS: 36415; 80053; 81001; 84703; 85025; 87077; 87086; 87186; 99284